=== PATIENT | female | born 1955 | race Hispanic/Latino ===

== ENCOUNTER 2021-01-04 13:53 | Emergency (ER) | payer BC ==
[~2021-01-04] VITALS: Ht 149.9 cm; Wt 62.6 kg
[2021-01-04] MEDS ORDERED: KETOROLAC TROMETHAMINE 60 MG/2 ML VIAL IM ONE (16:00)
== END 2021-01-04 15:54 | disposition home or self-care (01) ==
LOC: ER 14:58
DX: M25.511 Pain in right shoulder (principal); G89.29 Other chronic pain; I10 Essential (primary) hypertension; M79.7 Fibromyalgia
CPT/HCPCS: 99283; J1885